=== PATIENT | male | born 1930 | race Caucasian/White ===

== ENCOUNTER 2017-04-12 17:26 | Inpatient (IN) | payer OTHER ==
[~2017-04-12] VITALS: Ht 172.7 cm; Wt 90.3 kg
[2017-04-12 17:26] VITALS: BP 166/71
[~2017-04-12 17:26] MED LIST: ALEVE220 MG PO; BACTRIM DS 8001 TA1 PO; CLONIDINE0.1 MG PO; DILTIAZEM60 MG PO; KEFLEX500 MG PO; LOVASTATIN40 MG PO; MULTI VITAMINS1 TAB PO; OCUVITE1 TA1 PO; SYNTHROID0.112 MG PO
[2017-04-12 18:45] LABS: BASO # 0.1 10*3/uL (0.0-0.1); BASO % 1.3 % (0.0-1.0); EOS # 1.2 10*3/uL (0.0-0.4); EOS % 13.4 % (1.0-4.0); HEMATOCRIT 41.1 % (42.0-52.0); LYMPH # 1.3 10*3/uL (1.3-4.4); LYMPH % 14.4 % (27.0-41.0); MEAN CELL VOLUME 87.4 fl (80.0-94.0); MEAN CORPUSCULAR HGB 27.7 pg (27.0-31.0); MEAN CORPUSCULAR HGB CONC 31.6 g/dl (33.0-37.0); MEAN PLATELET VOLUME 8.4 fl (9.6-12.3); MONO # 0.8 10*3/uL (0.1-1.0); MONO % 8.2 % (3.0-9.0); NEUT # 5.8 10*3/uL (2.3-7.9); NEUT % 62.3 % (47.0-73.0); PLATELET COUNT AUTOMATED 208 10*3/uL (130-400); RED CELL DISTRI WIDTH 15.6 % (0-14.5); WHITE BLOOD COUNT 9.3 10*3/uL (4.8-10.8)
[2017-04-12 18:55] LABS: ACT PARTIAL THROMBO TIME 27.5 SECONDS (20.8-31.5); INTERNATIONAL NORM RATIO 1.1 (2.0-3.5)
[2017-04-12 19:02] LABS: ALBUMIN 3.4 gm/dl (3.1-4.5); CREATININE 2.02 mg/dL (0.70-1.30); POTASSIUM 4.1 mmol/L (3.5-5.1); TOTAL PROTEIN 7.8 gm/dL (6.4-8.2)
[2017-04-12 19:05] LABS: TROPONIN I 0.114 ng/ml (<0.045)
[2017-04-12 19:34] LABS: BILIRUBIN NEGATIVE (NEGATIVE); BLOOD NEGATIVE (NEGATIVE); CLARITY CLEAR (CLEAR); COLOR YELLOW (YELLOW); GLUCOSE NEGATIVE (NEGATIVE); KETONE NEGATIVE (NEGATIVE); LEUKO ESTERASE NEGATIVE (NEGATIVE); NITRITE NEGATIVE (NEGATIVE); SPECIFIC GRAVITY >= 1.030 (1.005-1.030)
[2017-04-12 19:45] LABS: BACTERIA 1+; HYALINE CAST 31-40; MUCOUS 1+
[2017-04-12 19:46] LABS: EPITHELIAL CELLS 0-2
[2017-04-12 20:00] VITALS: BP 180/77
[2017-04-12] MEDS ORDERED: ASPIRIN CHEWABL81 MG PO (20:45)
[2017-04-12] MEDS ORDERED: LIPITOR20 MG PO (20:47)
[2017-04-12] MEDS ORDERED: SYNTHROID,LEV112 MCG PO (20:47)
[2017-04-12] MEDS ORDERED: FERROUS SULFAT325 MG PO (20:48)
[2017-04-13] VITALS: BP 156/72
[2017-04-13 07:14] LABS: BASO # 0.1 10*3/uL (0.0-0.1); EOS # 0.3 10*3/uL (0.0-0.4); EOS % 2.5 % (1.0-4.0); HEMATOCRIT 37.2 % (42.0-52.0); HEMOGLOBIN 11.9 g/dl (14.0-18.0); LYMPH # 1.3 10*3/uL (1.3-4.4); LYMPH % 12.6 % (27.0-41.0); MEAN CELL VOLUME 86.5 fl (80.0-94.0); MEAN CORPUSCULAR HGB 27.7 pg (27.0-31.0); MEAN PLATELET VOLUME 9.3 fl (9.6-12.3); MONO # 0.9 10*3/uL (0.1-1.0); MONO % 8.9 % (3.0-9.0); NEUT # 7.6 10*3/uL (2.3-7.9); NEUT % 74.6 % (47.0-73.0); PLATELET COUNT AUTOMATED 195 10*3/uL (130-400); RED CELL DISTRI WIDTH 15.9 % (0-14.5); WHITE BLOOD COUNT 10.2 10*3/uL (4.8-10.8)
[2017-04-13 07:29] LABS: ACT PARTIAL THROMBO TIME 28.1 SECONDS (20.8-31.5); INTERNATIONAL NORM RATIO 1.1 (2.0-3.5)
[2017-04-13 07:47] LABS: CREATININE 1.84 mg/dL (0.70-1.30); PHOSPHOROUS 3.2 mg/dL (2.5-4.9); POTASSIUM 4.2 mmol/L (3.5-5.1); TOTAL PROTEIN 6.9 gm/dL (6.4-8.2)
[2017-04-13 07:53] LABS: FREE T4 1.11 ng/dl (0.76-1.46); THYROID STIM HORMONE (HS) 8.63 uIU/ml (0.358-4.75)
[2017-04-13 08:00] VITALS: BP 146/60
[2017-04-13 10:06] VITALS: BP 123/60
[2017-04-13 10:47] LABS: VITAMIN D, 25-HYDROXY 20.4 ng/mL (30-100)
[2017-04-13 12:00] VITALS: BP 129/52
[2017-04-13 16:00] VITALS: BP 103/44
== END 2017-04-13 17:44 | disposition short-term general hospital (02) | DRG 871 ==
LOC: ED 17:26 → EDHOLD 19:45 → 5E 19:45 → ICCU 04-13 09:32
PROVIDERS: Hospitalist; Physician Assistant
DX: A41.9 Sepsis, unspecified organism (principal); N17.0 Acute kidney failure with tubular necrosis; I21.9 Acute myocardial infarction, unspecified; L03.115 Cellulitis of right lower limb; I48.91 Unspecified atrial fibrillation; D64.9 Anemia, unspecified; E44.0 Moderate protein-calorie malnutrition; E03.9 Hypothyroidism, unspecified; E07.9 Disorder of thyroid, unspecified; L03.116 Cellulitis of left lower limb; E55.9 Vitamin D deficiency, unspecified; E53.8 Deficiency of other specified B group vitamins; R74.0 Nonspecific elevation of levels of transaminase and lactic acid dehydrogenase [LDH]; R65.20 Severe sepsis without septic shock; R26.9 Unspecified abnormalities of gait and mobility; I10 Essential (primary) hypertension; E78.5 Hyperlipidemia, unspecified; Z79.899 Other long term (current) drug therapy; Z72.89 Other problems related to lifestyle; Z79.82 Long term (current) use of aspirin

== ENCOUNTER 2017-06-28 17:17 | Inpatient (IN) | payer MEDICAID ==
[~2017-06-28] VITALS: Ht 165.1 cm; Wt 73.5 kg
--- NOTE | ~2017-06-28 | PR ---
[place], [place] PROGRESS NOTE NAME: KATRIN OCASIO [facility] #: [id number] UNIT #: [id number] ROOM: 409 DOCTOR: OSMAR DOMINGO DPM BIRTHDATE: [birth year] DOS: 07/01/2017 SUBJECTIVE: The patient was seen for followup ulceration of the left heel. OBJECTIVE: The left heel ulceration reveals localized eschar. No signs of purulent drainage or foul odor. No signs of probing or undermining. Results of the arterial ultrasound revealed evidence of mild PVD on the right with occlusion and reverse flow in the anterior tibial artery, left. There is evidence of sxntirss-hn-[id number] peripheral vascular disease with occluded anterior tibial artery and dorsalis pedis artery. ASSESSMENT: Ulceration, left heel; peripheral vascular disease. PLAN: Evaluation and management. Continue Betadine and gauze dressings to the heel. We will consult Dr. Jin for Vascular consultation and we will follow the patient tomorrow. OSMAR DOMINGO DPM CM:BRANNON [id number] OSMAR DOMINGO DPM 07/01/17 1311 interface
--- NOTE | ~2017-06-28 | CON ---
[place], [place] REPORT OF CONSULTATION NAME: KATRIN OCASIO [facility] #: [id number] UNIT #: [id number] ROOM: [place] [address] DOCTOR: SATURNINO CHA MD,ZONIA BIRTHDATE: [birth year] DOS: 06/30/2017 REASON FOR CONSULTATION: For assessment of overall medical status of the patient's critical illnesses. HISTORY OF PRESENT ILLNESS: An 87-year-old elderly male with multiple medical problems. The patient is a resident of [facility]. The patient has been noted chronic wound of the left heel with advanced peripheral vascular disease. He has been sent to the Emergency Room. The patient has routine labs done, which was noted with abnormality of elevation of the bilirubin, creatinine, and abnormal white cell count and other labs. He has been admitted to the intensive care unit for further medical management of the current multiorgan illnesses, which were ongoing. The patient has been assessed by several consultants including Cardiology, Infectious Disease, Nephrology services, foot cutter, and others. The patient has been noted awake and alert this morning of assessment. He has not been noted any symptoms of chest pain, coughing, or sputum expectoration. The patient denies symptoms of hemoptysis. REVIEW OF SYSTEMS: Somewhat limited, however. EYES: Denies any burning, redness, discharge, or diplopia. EARS, NOSE, AND THROAT: Denies sore throat, hoarseness, otalgia, postnasal drainage. CARDIOVASCULAR: Denies palpitations or angina pain. GASTROINTESTINAL: Denies dysphagia, nausea, vomiting, diarrhea, abdominal pain, hematemesis, melena, or hematochezia. SKIN: Denies any rashes or lesions. EXTREMITIES: The patient was complaining of pain in his foot, but not reported any pain with rest on the lower extremities. MUSCULOSKELETAL: The patient denies any acute joint pain except the pain in the left foot. CENTRAL NERVOUS SYSTEM: The patient noted mostly bed bound at the present time. Denies any focal neurologic deficit. General weakness were reported. Remaining systems were reviewed. They were noted all negative. PAST MEDICAL HISTORY: 1. History of longstanding atrial fibrillation. 2. Chronic kidney disease stage 3. 3. Essential hypertension. 4. Hyperlipidemia. 5. Advanced peripheral vascular disease. 6. Macular degeneration. 7. Hyperlipidemia. 8. Osteopenia. 9. Coronary artery disease. 10. Hypothyroidism. SOCIAL HISTORY: The patient was noted as remote smoker. The patient has not been smoking cigarettes for the past several years. He is currently and a resident of a nursing facility. There was no history of alcohol use. [place], [place] REPORT OF CONSULTATION NAME: KATRIN OCASIO UNIT #: [id number] ROOM: [place] [address] DOCTOR: SATURNINO CHA MD,ZONIA BIRTHDATE: [birth year] PAST SURGICAL HISTORY: None major reported. MEDICATIONS: From the [facility] reported use of aspirin, Lipitor, ferrous sulfate, multivitamin, hydralazine, Tylenol, levothyroxine, metoprolol succinate, collagenous dressing, and Imdur. DRUG ALLERGY HISTORY: ALLERGY TO THE MEDICATION EXCEPT LACTOSE INTOLERANCE. PHYSICAL EXAMINATION: GENERAL: This is an 87-year-old white man, who appeared to be awake and alert at this time, resting comfortably in the bed. VITAL SIGNS: Height of 5 feet 5 inches, weight of 162 pounds, BMI 25.2. The temperature since admission on 06/28/2017, as temperature max is 99.1 degree Fahrenheit. The respiratory rate range between 21-23. Heart rate of 60, blood pressure 144/62. Pulse oxygen saturation recorded as 98% on 2 liters nasal cannula. HEENT: Examination shows head was atraumatic. Eyes nonicterus. NECK: Supple. Oral mucosa was moist. Decreased posterior pharyngeal space, high tongue base, and crowding soft tissue structures. LUNGS: Noted with mild decreased breath sounds in the lungs bilaterally. ABDOMEN: Noted moderate obesity. Bowel sounds present without any acute tenderness. EXTREMITIES: The patient was noted without any edema of the patient's wound of the left heel. MUSCULOSKELETAL: Without any acute deformities. GENITOURINARY: General weakness, but there were no gross focal neurologic deficits seen. LABORATORY DATA: CBC on 06/28/2017, WBC count 29.9, hemoglobin 12.2, hematocrit 37.2, platelet count of 178,000, 90% segmented neutrophils. CMP on 06/28/2017, BUN 30, creatinine 2.73, glucose 112. AST of 354, ALT 404, alkaline phosphatase is 965, total bilirubin 5.7, direct bilirubin 4.7, albumin 2.3. CBC as an outpatient on 06/23/2017, was noted as hemoglobin 12, hematocrit 36.3, platelet count was normal. The CMP for the patient was noted with BUN 21, creatinine 1.67. TSH was elevated at 31.90. PT/PTT that was done on admission on 06/28/2017, was noted as normal PT and PTT. The blood culture with gram-negative bacilli, taken in the Emergency Room on 06/28/2017. Urinalysis, the patient was noted with 2+ protein. PT/PTT yesterday were noted as negative. CBC this morning, WBC count normal, hemoglobin 12, hematocrit 38.2, platelet count was noted as normal. CMP, BUN of 47, creatinine 3.47, glucose 117. AST was 91, ALT 187, alkaline phosphatase 934. Wound culture of the left heel to have growth of gram-negative bacilli, pending identification sensitivities. Chest x-ray that was done on admission was reviewed, shows evidence of small pleural fluid noted bilaterally with basilar area of atelectasis, mild elevation of right hemidiaphragm, and small linear atelectasis was noted in the right lower lobe as well. There were no findings of the major acute congestive heart failure or pulmonary edema. Ultrasound of the abdomen was done on 06/29/2017, reported as diffuse hepatic steatosis with a nodular contour, sludge, and stones in the gallbladder without any gallbladder wall thickening. Arterial ultrasound [place], [place] REPORT OF CONSULTATION [id number] UNIT #: [id number] ROOM: [place] [address] DOCTOR: SATURNINO CHA MD,ZONIA BIRTHDATE: [birth year] of the bilateral lower extremity was also reported evidence of mild peripheral vascular disease in the right side and [id number] peripheral vascular disease were noted on the left lower extremity. Further assessment of the CTA was advised. IMPRESSION: 1. The patient who has been admitted to the hospital with multiorgan system failure with major illness as acute sepsis most likely originating from the left heel wound with bacteremia gram-negative infection. 2. Abnormal liver function tests, multifactorial most likely related to current sepsis would be considered as well with the possibility of obstruction in the GI tract for this patient, but is not to be demonstrated with the ultrasound. Elevation of the alkaline phosphatase may be according to non-liver cirrhosis as well. 3. The patient with possibility of osteomyelitis of the left heel wound for the left heel as well. 4. The patient with basilar area of atelectasis, pleural fluid related to the progressive acute injury, fluid accumulation and hypoventilation. 5. Progressive acute kidney injury for the patient related to possible acute sepsis or acute tubular necrosis. 6. Moderate obesity as well. 7. Remote past history of tobacco use, but there was no diagnosed history of chronic obstructive pulmonary disease. PLAN OF MANAGEMENT: Infection is already addressed by the Infectious Disease services, follow the recommendation. From the pulmonary standpoint, the pleural fluid noted small at this time, would not require any acute intervention or illnesses of the patient, which has been noted several, those has been treated accordingly. The patient recommended assessment of peripheral vascular disease by the other specialists, but the patient's family member change his code status, which not the patient to be transferred to another facility for further assessment of severe peripheral vascular disease for this patient, which was suspected in the left lower extremity. Continue conservative treatment. The patient's code status has been changed to comfort measures as well. Continue noninvasive medical management as well. Chest x-ray monitoring in case of any respiratory distress, hypoxia for assessment of pleural fluid. Management and assessment of the acute kidney injury continue by the Nephrology services. The prognosis remains guarded. Supportive therapy, plan of management, other care plan. Thank you for allowing me to participate in the care of this patient. [place], [place] REPORT OF CONSULTATION NAME: KATRIN OCASIO [facility] #: [id number] UNIT #: [id number] ROOM: [place] [address] DOCTOR: ZONIA CHATTERJEE MD BIRTHDATE: [birth year] ZONIA MATAMOROS MD CM:CONSTR:REPORT OF CONSULTATION 1220 07/01/17 0015 interface
--- NOTE | ~2017-06-28 | CON ---
[place], [place] REPORT OF CONSULTATION NAME: [facility]IN OCASIO [facility] #: [id number] UNIT #: [id number] ROOM: 409 DOCTOR: GAEL TAYLORTAE BIRTHDATE: [birth year] DOS: 06/30/2017 GASTROENDOSCOPIC REPORT HISTORY OF PRESENT ILLNESS: The patient is an 87-year-old who presented from prison with failure to thrive, abnormal liver function test. We were asked to assess the patient in this regard. The patient with a wound in his legs, failure to thrive. His H and H was 12 and 36, white blood cell was 8, platelets 200,000. BUN and creatinine 21 and 1.6. Basic metabolic normal, liver function test normal. Thyroid stimulating hormone 31. CBC: White blood cell 29, H and H of 12 and 36, platelets 178. Comprehensive metabolic panel: BUN and creatinine 30 and 2.7. Bilirubin 5.7. Liver function tests are abnormal. GOT and GPT of 354 and 400+ and alkaline phosphatase of 960, this is on the 19th; however, lactic acid was 2.4. INR 1.5. Labs and records reassessed. Foot ulcers was noticed. PAST MEDICAL HISTORY: Renal failure, cellulitis of lower extremities, non-STEMI myocardial infarction, change in mental status, atrial fibrillation, hypertension, hyperlipidemia, and hypothyroidism. PAST SURGICAL HISTORY: None. SOCIAL HISTORY: Nonsmoker, nonalcohol consumer, in the prison. FAMILY HISTORY: Noncontributory. MEDICATIONS: List has been reviewed. REVIEW OF SYSTEMS: GENERAL: Cannot be obtained from him due to his cognitive incapabilities. PHYSICAL EXAMINATION: VITAL SIGNS: Stable. GENERAL: The patient nearly unresponsive, open mouth and no cognition of his environment otherwise. HEENT: Head normocephalic, nontraumatic. Mouth dry. NECK: Supple, no thyromegaly. CHEST: Symmetric anatomy, decreased air entry in general. HEART: Normal sinus rhythm, no gallop, no murmur. ABDOMEN: Soft. No hepato-organomegaly. Bowel sounds present. EXTREMITIES: Cellulitis of lower extremities, stasis dermatitis also noticed, ulcerations noticed. NEUROLOGIC: Alert to pain, otherwise no meaningful communication. PLAN AND DISCUSSION: Abnormal liver function test, deserves investigation; however, he was just told by nurse that family is considering the DNR. Therefore, we are going to stand by until definitive answer. His viral hepatitis workup has been unremarkable. His serum ammonia level less than 10. Ultrasound of the abdomen, diffuse hepatic steatosis with nodular contour, confirms cirrhosis, most likely the sludge and stone in the gallbladder and [place], [place] REPORT OF CONSULTATION NAME: KATRIN OCASIO UNIT #: [id number] ROOM: 409 DOCTOR: GAEL TAYLOR,TAE BIRTHDATE: [birth year] possibilities also in common duct. PLAN AND DISCUSSION: We will standby for definitive answers from the family regarding decision making of the intensity of care. TAE MAYO MD CM:CONSTR:REPORT OF CONSULTATION 2107 07/01/17 0600 interface
--- NOTE | ~2017-06-28 | CON ---
[place], [place] REPORT OF CONSULTATION NAME: KATRIN OCASIO [facility] #: [id number] UNIT #: [id number] ROOM: 409 DOCTOR: SHEN HERNANDEZIVANA BIRTHDATE: [birth year] DOS: 06/29/2017 PODIATRY CONSULTATION. SUBJECTIVE: This 87-year-old male is seen today for a consultation in regard to an ulceration of his left heel. The patient is unsure how long it has been there. He is from [facility]. He denies fever, chills, nausea, vomiting or night sweats. He denies being diabetic. PAST MEDICAL HISTORY: Positive for atrial fibrillation, chronic kidney disease stage 3, hypertension, hyperlipidemia, macular degeneration, history of MT, thyroid disease. ALLERGIES: LACTOSE. CURRENT MEDICATIONS: Include K-Dur, meropenem, topical Lamisil, 81 mg aspirin, ferrous sulfate, Zosyn, Protonix, Synthroid, vancomycin, subQ heparin, Restoril. OBJECTIVE: Upon lower extremity physical examination, pedal pulses are diminished. There is absent hair growth noted. There is chronic dependent edema with pigment changes noted bilaterally. Negative Homans sign is noted. Skin temperature is cool to toes. CFT is delayed. Sensation appears grossly intact and symmetrical bilaterally. Plantar posterior portion of the left heel has what appears to be a chronic heel ulcer. There is thick eschar noted within the wound with well-defined borders. There is no purulent drainage, no malodor, no surrounding edema or erythema. There are no signs of abscess. Dry macerated skin noted in both feet consistent with tinea pedis. No cellulitis noted either lower extremity. X-ray was negative. CT showed osteomyelitis of the posterior heel in the area of the ulceration. ASSESSMENT: Chronic left heel ulcer with osteomyelitis, probable peripheral arterial disease bilaterally. PLAN: Consult is performed. Continue with local wound care and offloading to the area daily. Infectious Disease has been consulted. I ordered peripheral arterial studies to evaluate for underlying PAD, possible vascular consult if shows occlusive disease bilaterally. Consider bone biopsy of the left heel, but want to wait and see what the arterial flow is before proceeding with any surgery. For now, continue with wound care and offloading, IV antibiotics and will follow up tomorrow. Thank you for the opportunity to take part in care of this patient. [place], [place] REPORT OF CONSULTATION NAME: KATRIN OCASIO UNIT #: [id number] ROOM: 409 DOCTOR: IVANA GOTTI DPM BIRTHDATE: [birth year] IVANA GOTTI DPM CM:CONSTR:REPORT OF CONSULTATION 1401 07/05/17 0806 interface
--- NOTE | ~2017-06-28 | CON ---
[place], [place] REPORT OF CONSULTATION NAME: [facility]IN OC[facility]IO [facility] [id number] UNIT #: [id number] ROOM: [place] [address] DOCTOR: COCO DICKERSON MD BIRTHDATE: [birth year] DOS: 06/29/2017 REASON FOR CONSULTATION: Left foot cellulitis and sepsis. HISTORY OF PRESENT ILLNESS: This is an 87-year-old male who has been referred from [facility] to [facility] for management of left calcaneal ulcer along with abnormal labs, elevated creatinine level. Currently, the patient has a history of dementia and is a poor historian. Most of the history obtained is from medical records. He himself denies any fever or chills. No nausea, vomiting. He has a left calcaneal ulcer, which is longstanding, but there are no records of his previous treatment. He does not recall being treated with long-term with IV antibiotics. On presentation to the ER, his vitals were stable. No high-grade fever. His lab data revealed leukocytosis 22.5 and his blood cultures, 2 sets, were positive on admission from 06/28/2017 with Gram-negative bacilli. The x-ray of his foot also reveals changes suggestive of calcaneal osteomyelitis, followed by a CT of left foot, does not mention any localized abscess. His repeat blood culture from today June 29 is in process. His superficial wound culture shows few Gram-positive cocci in pairs and chains and few Gram-negative bacilli. An ultrasound arteriogram was ordered by podiatry that showed severe peripheral arterial disease of left lower extremity. At this time, the patient is on vancomycin plus Zosyn empirically as patient was septic. PAST MEDICAL HISTORY: 1. Atrial fibrillation. 2. Chronic kidney disease stage 3. 3. Hyperlipidemia. 4. Macular degeneration. 5. NSTEMI. 6. Thyroid disease. PAST SURGICAL HISTORY: None as per EMR. SOCIAL HISTORY: Occasional alcohol use, no illicit drug use. Nonsmoker. FAMILY HISTORY: Unknown. ALLERGIES: Possibly LACTOSE. HOME MEDICATIONS: Include Tylenol, aspirin, atorvastatin, hydralazine, isosorbide mononitrate, levothyroxine, metoprolol, multivitamin. PHYSICAL EXAMINATION: VITAL SIGNS: Current vitals include temperature of 97.9, pulse rate of 66, respiratory rate 19, blood pressure 145/62, oxygen saturation 100% on 2 liters of oxygen. GENERAL: The patient is alert, but not oriented times 3, not in acute distress. HEENT: Atraumatic, normocephalic. PERRLA, EOMI. CHEST: Air entry bilaterally equal. No wheeze or crackles. CARDIOVASCULAR: S1, S2 normal. No murmur, rubs or gallops. [place], [place] REPORT OF CONSULTATION NAME: KATRIN OCASIO UNIT #: [id number] ROOM: [place] [address] DOCTOR: COCO DICKERSON MD BIRTHDATE: [birth year] ABDOMEN: Soft, nontender, nondistended. Bowel sounds present in 4 quadrants. EXTREMITIES: Left lower extremity redness from mid calf all the way up to ankle and entire foot. There is an irregular 4 x 4 cm ulcer noted at the calcaneus with necrotic base extremely tender to palpation, slight purulence noted, foul smell. Dorsalis pedis pulse 1+, severe onychomycosis seen. Right lower extremity does not have a distinct ulcer, but the redness and pain can be appreciated. NEUROLOGIC: Grossly intact. LABORATORY DATA: WBC count initially 22.5, currently 16.8; hemoglobin of 11.8; platelets 166; sodium 139; potassium 3.3; BUN 45. Creatinine 3.3, a month ago, creatinine baseline was 1.6-1.8. UA obtained shows 5-10 wbc's with 0-2 epithelial cells, uric acid crystals seen, amorphous sediment, hyaline cast. Imaging mentioned in the HPI and reviewed. ASSESSMENT: 1. Severe sepsis from left lower extremity ulcer/osteomyelitis. 2. Left calcaneal osteomyelitis. 3. Left calcaneal diabetic nonhealing ulcer. 4. Asymptomatic bacteriuria. 5. Acute kidney injury on chronic kidney disease. PLAN: 1. At this time, the patient is presenting with severe sepsis secondary to left leg ulcer. Continue vancomycin and Zosyn, pending finalization of blood culture results. 2. Definite treatment of left lower extremity ulcer needs debridement. Appreciate vascular and podiatry input. 3. Keep leg elevated. 4. Follow up with blood culture results. 5. UA not impressive for UTI. Thank you for the consult, please call if you have any questions. Coco Dickerson MD CM:CONSTR:REPORT OF CONSULTATION 2201 06/30/17 0533 interface
--- NOTE | ~2017-06-28 | PR ---
[place], [place] PROGRESS NOTE [id number] UNIT #: [id number] ROOM: 409 DOCTOR: ZONIA CHATTERJEE MD BIRTHDATE: [birth year] DOS: 07/01/2017 SUBJECTIVE: He has been noted awake at this time without any acute distress, but transferred from the Intensive Care Unit to medical floor, currently managed for the wound infection of the foot. The culture of the foot wound was noted as Proteus mirabilis. The blood culture noted as findings of Escherichia coli for this patient. It was noted as sensitivity to Unasyn, Augmentin, Zosyn and some other resistant to the other organisms. IMPRESSION: 1. Osteomyelitis of the patient at this time was noted of the foot for the patient's peripheral vascular disease. 2. Bacteremia and other issues. PLAN OF TREATMENT: Continue the management of the infection by the Infectious Disease Services. Pulmonary will sign off for this patient. The patient does not require any acute intervention from the Pulmonary standpoint and noted stable. The patient's code status also noted comfort care. ADDENDUM PHYSICAL EXAMINATION: VITAL SIGNS: The patient's vital signs which was recorded showed the temperature noted as normal, respiratory rate 20, heart rate of 68, blood pressure 141/56. Pulse oxygen saturation recorded on 2 liters 97% saturation. The patient was noted comfortable at this time, resting on the bed without any acute distress. HEENT: Examination shows head was atraumatic. Eyes nonicterus. NECK: Supple. CARDIOVASCULAR: S1, S2 audible. LUNGS: The patient was noted with [id number] decreased breaths without any wheezing or crackles. ABDOMEN: Soft. EXTREMITIES: No new changes. Chronic changes noted previously with the wound and peripheral vascular disease findings. [place], [place] PROGRESS NOTE NAME: KATRIN OCASIO UNIT #: [id number] ROOM: 409 DOCTOR: ZONIA CHATTERJEE MD BIRTHDATE: [birth year] ZONIA MATAMOROS MD CM:PNTRANS [phone] ZONIA CHA MD 07/02/17 1751 interface
--- NOTE | ~2017-06-28 | PR ---
[place], [place] PROGRESS NOTE NAME: KATRIN OCASIO [facility] #: [id number] UNIT #: [id number] ROOM: 409 DOCTOR: SATURNINO CHA MD,ZONIA BIRTHDATE: [birth year] DOS: 06/29/2017 ADDENDUM PHYSICAL EXAMINATION: VITAL SIGNS: The patient's vital signs which was recorded showed the temperature noted as normal, respiratory rate 20, heart rate of 68, blood pressure 141/56. Pulse oxygen saturation recorded on 2 liters 97% saturation. The patient was noted comfortable at this time, resting on the bed without any acute distress. HEENT: Examination shows head was atraumatic. Eyes nonicterus. NECK: Supple. CARDIOVASCULAR: S1, S2 audible. LUNGS: The patient was noted with [id number] decreased breaths without any wheezing or crackles. ABDOMEN: Soft. EXTREMITIES: No new changes. Chronic changes noted previously with the wound and peripheral vascular disease findings. ZONIA MATAMOROS MD CM:PNTRANS 1151 [id number] ZONIA CHA MD 07/02/17 1755 interface
[~2017-06-28 17:17] MED LIST changes: +ASPIRIN CHEWABL81 MG PO; +FERROUS SULFAT325 MG PO; +LIPITOR20 MG PO; +SYNTHROID,LEV112 MCG PO
[2017-06-28 17:30] VITALS: BP 92/51
[2017-06-28] MEDS ORDERED: HYDRALAZINE10 MG PO (17:40)
[2017-06-28] MEDS ORDERED: METOPROLOL SUCC25 M2 PO (17:41)
[2017-06-28] MEDS ORDERED: SANTYL30 GM TD (17:43)
[2017-06-28] MEDS ORDERED: APLISOL5 TUB UNIT SC (17:44)
[2017-06-28] MEDS ORDERED: PROSOURCE PLUS887 ML PO (17:45)
[2017-06-28] MEDS ORDERED: OCUVITE ADULT1 EACH PO (17:45)
[2017-06-28] MEDS ORDERED: TYLENOL325 M1 PO (17:46)
[2017-06-28 18:01] LABS: HEMATOCRIT 39.6 % (42.0-52.0); HEMOGLOBIN 12.7 g/dl (14.0-18.0); MEAN CELL VOLUME 84.3 fl (80.0-94.0); MEAN CORPUSCULAR HGB CONC 32.1 g/dl (33.0-37.0); MEAN PLATELET VOLUME 8.9 fl (9.6-12.3); PLATELET COUNT AUTOMATED 170 10*3/uL (130-400); WHITE BLOOD COUNT 22.5 10*3/uL (4.8-10.8)
[2017-06-28 18:11] LABS: ACT PARTIAL THROMBO TIME 29.8 SECONDS (20.8-31.5); INTERNATIONAL NORM RATIO 1.1 (2.0-3.5)
[2017-06-28 18:16] LABS: ALBUMIN 2.3 gm/dl (3.1-4.5); ALKALINE PHOSPHATASE 973 U/L (45-117); CHLORIDE 102 mmol/L (98-107); CREATININE 3.14 mg/dL (0.70-1.30); POTASSIUM 3.6 mmol/L (3.5-5.1); SGOT/AST 242 IU/L (3-35); SGPT/ALT 336 U/L (12-78); SODIUM 139 mmol/L (136-145); TOTAL PROTEIN 7.4 gm/dL (6.4-8.2)
[2017-06-28 18:18] LABS: BUN 40 mg/dl (7-24)
[2017-06-28 18:19] LABS: ATYPICAL LYMPHS 1 % (0-0); TOTAL CELLS COUNTED 100 #CELLS
[2017-06-28 18:20] LABS: BURR CELLS FEW; PLATELET SUFFICIENCY NORMAL (NORMAL)
[2017-06-28 18:24] LABS: ACETAMINOPHEN (TYLENOL) < 2.0 ug/ml (10-30)
[2017-06-28 20:29] VITALS: BP 92/54
[2017-06-28 22:00] VITALS: BP 107/49
[2017-06-28] MEDS ORDERED: ISOSORBIDE30 MG PO (23:29)
[2017-06-29] VITALS: BP 117/48
[2017-06-29 04:00] VITALS: BP 120/48
[2017-06-29 04:49] LABS: BASO % 0.2 % (0.0-1.0); EOS # 0.3 10*3/uL (0.0-0.4); EOS % 1.6 % (1.0-4.0); HEMATOCRIT 36.2 % (42.0-52.0); HEMOGLOBIN 11.8 g/dl (14.0-18.0); LYMPH # 0.9 10*3/uL (1.3-4.4); LYMPH % 5.3 % (27.0-41.0); MEAN CELL VOLUME 84.8 fl (80.0-94.0); MEAN CORPUSCULAR HGB 27.6 pg (27.0-31.0); MEAN CORPUSCULAR HGB CONC 32.6 g/dl (33.0-37.0); MEAN PLATELET VOLUME 8.9 fl (9.6-12.3); MONO # 0.9 10*3/uL (0.1-1.0); MONO % 5.1 % (3.0-9.0); NEUT # 14.6 10*3/uL (2.3-7.9); NEUT % 86.9 % (47.0-73.0); PLATELET COUNT AUTOMATED 166 10*3/uL (130-400); RED BLOOD COUNT 4.27 10*6/uL (4.50-5.90); RED CELL DISTRI WIDTH 14.1 % (0-14.5); WHITE BLOOD COUNT 16.8 10*3/uL (4.8-10.8)
[2017-06-29 05:06] LABS: ALBUMIN 2.1 gm/dl (3.1-4.5); CREATININE 3.38 mg/dL (0.70-1.30); POTASSIUM 3.3 mmol/L (3.5-5.1); TOTAL PROTEIN 6.7 gm/dL (6.4-8.2)
[2017-06-29 05:13] LABS: THYROID STIM HORMONE (HS) 21.5 uIU/ml (0.358-4.75)
[2017-06-29 08:00] VITALS: BP 138/60
[2017-06-29 08:15] LABS: VITAMIN D, 25-HYDROXY 18.1 ng/mL (30-100)
[2017-06-29 11:53] LABS: BILIRUBIN 2+ (NEGATIVE); BLOOD 1+ (NEGATIVE); CLARITY CLOUDY (CLEAR); COLOR YELLOW (YELLOW); GLUCOSE NEGATIVE (NEGATIVE); KETONE TRACE (NEGATIVE); LEUKO ESTERASE NEGATIVE (NEGATIVE); NITRITE NEGATIVE (NEGATIVE); SPECIFIC GRAVITY 1.025 (1.005-1.030)
[2017-06-29 12:00] VITALS: BP 128/63
[2017-06-29 12:07] LABS: MUCOUS 2+; URIC ACID CRYSTALS 1+
[2017-06-29 16:00] VITALS: BP 145/62
[2017-06-29 16:01] LABS: ACT PARTIAL THROMBO TIME 30.2 SECONDS (20.8-31.5)
[2017-06-29 20:00] VITALS: BP 134/60
[2017-06-30] VITALS: BP 152/60
[2017-06-30 04:00] VITALS: BP 145/57
[2017-06-30 06:24] LABS: BASO % 0.4 % (0.0-1.0); EOS # 0.3 10*3/uL (0.0-0.4); EOS % 3.7 % (1.0-4.0); HEMATOCRIT 38.2 % (42.0-52.0); LYMPH # 0.7 10*3/uL (1.3-4.4); MEAN CELL VOLUME 84.7 fl (80.0-94.0); MEAN CORPUSCULAR HGB 26.6 pg (27.0-31.0); MEAN CORPUSCULAR HGB CONC 31.4 g/dl (33.0-37.0); MEAN PLATELET VOLUME 9.5 fl (9.6-12.3); MONO # 0.6 10*3/uL (0.1-1.0); MONO % 6.6 % (3.0-9.0); NEUT # 7.3 10*3/uL (2.3-7.9); NEUT % 80.1 % (47.0-73.0); PLATELET COUNT AUTOMATED 148 10*3/uL (130-400); RED BLOOD COUNT 4.51 10*6/uL (4.50-5.90); RED CELL DISTRI WIDTH 14.3 % (0-14.5); WHITE BLOOD COUNT 9.1 10*3/uL (4.8-10.8)
[2017-06-30 06:43] LABS: CREATININE 3.45 mg/dL (0.70-1.30); FREE T4 0.65 ng/dl (0.76-1.46); PHOSPHOROUS 3.7 mg/dL (2.5-4.9); TOTAL PROTEIN 6.5 gm/dL (6.4-8.2)
[2017-06-30 06:57] LABS: POTASSIUM 4.7 mmol/L (3.5-5.1)
[2017-06-30 08:00] VITALS: BP 144/69
[2017-06-30 10:06] LABS: HEPATITIS B SURFACE AG Negative (Negative); HEPATITIS C VIRUS ANTIBODY 0.1 s/co (0.0-0.9)
[2017-06-30 12:00] VITALS: BP 116/74
[2017-06-30 16:00] VITALS: BP 157/76
[2017-07-01] VITALS: BP 141/56
[2017-07-01 08:00] VITALS: BP 112/53
[2017-07-01] MEDS ORDERED: VITAMIN D-32000 UNIT PO (10:35)
[2017-07-01] MEDS ORDERED: NATURE'S BLEND F1 MG PO (10:35)
[2017-07-01] MEDS ORDERED: AUGMENTIN 500500 M1 PO (10:36)
[2017-07-01] MEDS ORDERED: MORPHINE S20 MG/5 ML PO (10:39)
[2017-07-01] MEDS ORDERED: ATIVAN ORAL C2 MG/ML PO (10:39)
[2017-07-01 12:00] VITALS: BP 118/60
== END 2017-07-01 13:53 | disposition hospice, home (50) | DRG 871 ==
LOC: ED 17:17 → 4E 20:39 → EDHOLD 20:39 → ICCU 20:39 → EDHOLD 20:50 → ICCU 20:57 → 4E 07-01 03:55
PROVIDERS: Internal Medicine; Internal Medicine Gastroenterology; Internal Medicine Nephrology; Nurse Practitioner Family; Student in an Organized Health Care Education/Training Program
DX: A41.51 Sepsis due to Escherichia coli [E. coli] (principal); E43 Unspecified severe protein-calorie malnutrition; N17.0 Acute kidney failure with tubular necrosis; J90 Pleural effusion, not elsewhere classified; L89.151 Pressure ulcer of sacral region, stage 1; I95.9 Hypotension, unspecified; E11.22 Type 2 diabetes mellitus with diabetic chronic kidney disease; E11.51 Type 2 diabetes mellitus with diabetic peripheral angiopathy without gangrene; E11.621 Type 2 diabetes mellitus with foot ulcer; B35.1 Tinea unguium; D64.9 Anemia, unspecified; L97.429 Non-pressure chronic ulcer of left heel and midfoot with unspecified severity; M86.8X7 Other osteomyelitis, ankle and foot; M86.8X8 Other osteomyelitis, other site; L03.116 Cellulitis of left lower limb; E11.622 Type 2 diabetes mellitus with other skin ulcer; E11.69 Type 2 diabetes mellitus with other specified complication; I48.0 Paroxysmal atrial fibrillation; L89.520 Pressure ulcer of left ankle, unstageable; R65.20 Severe sepsis without septic shock; N18.3 Chronic kidney disease, stage 3 (moderate); E78.5 Hyperlipidemia, unspecified; M85.80 Other specified disorders of bone density and structure, unspecified site; H35.30 Unspecified macular degeneration; Z66 Do not resuscitate; Z51.5 Encounter for palliative care; K76.0 Fatty (change of) liver, not elsewhere classified; E11.65 Type 2 diabetes mellitus with hyperglycemia; L30.8 Other specified dermatitis; B35.3 Tinea pedis; M85.872 Other specified disorders of bone density and structure, left ankle and foot; K80.20 Calculus of gallbladder without cholecystitis without obstruction; E66.8 Other obesity; R62.7 Adult failure to thrive; E03.9 Hypothyroidism, unspecified; I12.9 Hypertensive chronic kidney disease with stage 1 through stage 4 chronic kidney disease, or unspecified chronic kidney disease; I25.10 Atherosclerotic heart disease of native coronary artery without angina pectoris; Z88.8 Allergy status to other drugs, medicaments and biological substances; Z79.82 Long term (current) use of aspirin; I25.2 Old myocardial infarction; Z79.899 Other long term (current) drug therapy; Z68.25 Body mass index [BMI] 25.0-25.9, adult